=== PATIENT | male | born 1965 | race Two or more races ===

== ENCOUNTER 2018-08-30 14:39 | Inpatient (IN) | payer OTHER ==
[~2018-08-30] VITALS: Ht 177.8 cm; Wt 82.5 kg
--- NOTE | 2018-08-30 20:32 | NUR ---
PATIENT ARRIVED TO THE UNIT AROUND 1999 VIA STRETCHER. WAS ABLE TO TRANSFER INDEPENDENTLY. FAMILY ACCOMPANIED PATIENT. VS STABLE. TELE [address]. PATIENT DENIES FEELING DIZZY OR LIGHTHEADED, NO PAIN OR NAUSEA. ABD IS SOFT, BOWEL SOUNDS ARE ACTIVE. PATIENT APPEARS TO BE IN GOOD PHYSICAL HEALTH. IV SITE SL, FLUSHES WELL. WOUNDS ON BOTH ARMS, PATIENT REPORTS THEM BITE CUEVA FROM HIS SON WHO HAS BEHAVIORAL ISSUES. NO CONERNS FOR SAFETY IN THE HOME. DISCUSSED PLAN OF CARE WITH PATIENT AND WHAT TO EXPECT FOR THIS NIGHT. PATIENT HAS NOT BEEN IN THE HOSPITAL OVER NIGHT BEFORE THIS STAY. PATIENT AGREES TO CALL BEFORE GETTING OUT OF BED AND WAS ORIENTED TO THE CALL LIGHT. DRINKS OFFERED TO FAMILY MEMBERS, AWAITING ORDERS FOR PATIENT.
--- NOTE | 2018-08-30 21:30 | NUR ---
PATIENT RESTING IN BED WATCHING TV. DENIES ANY NEEDS AT THIS TIME. CALL LIGHT IN REACH. FAMILY IN ROOM.
--- NOTE | 2018-08-30 22:45 | NUR ---
IN ROOM TO ASSESS PATIENT
--- NOTE | 2018-08-31 | NUR ---
PATIENT SLEEPING SOUNDLY. RR 18. WATER CUP REMOVED FROM BEDSIDE. FAMILY IN ROOM. CALL LIGHT IN REACH.
--- NOTE | 2018-08-31 05:10 | NUR ---
MORNING VS DONE. PATIENT REPORTS FEELING "FINE" THIS MORNING. NO PAIN. NO BM. VS STABLE. IV FLUIDS PER ORDER, SITE WNL. CONSENT SIGNS AND WITNESSED BY MYSELF. ALL QUESTIONS ANSWERED. PATIENT UP TO THE BATHROOM. DENIES FEELING LIGHTHEADED OR DIZZY. URINE OUTPUT QS.
--- NOTE | 2018-08-31 05:18 | NUR ---
PATIENT SLEPT THROUGHOUT THE NIGHT. NO BM SINCE ARRIVAL. VS STABLE. TELE 5, HR 55-65 AT REST. IV FLUIDS, LR @ 125. URINE OUTPUT QS. PATIENT STABLE WITH AMBULATION, NOT LIGHTHEADED OR DIZZY. CONSENT SIGNED, WILL WORK HIM IN FOR PLANNED PROCEDURES TODAY. NPO SINCE MIDNIGHT.
--- NOTE | 2018-08-31 07:30 | NUR ---
RECIEVED BEDSIDE REPORT FROM SOL NDIAYE. PT AWAKE AND ALERT. MOTHER AT BEDSIDE. PT HAD QUESTIONS RE LABS. LAB RESULTS EXPLAINED TO PT. NPO SINCE MIDNIGHT. ANXIOUSLY WAITING FOR HIS PROCEDURE.
--- NOTE | 2018-08-31 08:39 | NUR ---
PT OFF THE FLOOR TO HAVE UPPER GI SCOPE.
--- NOTE | 2018-08-31 09:19 | NUR ---
08/31/18 0919 Fatou English 0912- PT ARRIVES TO PACU ALERT. PT REPORTS NO PAIN OR NAUSEA. RESP EVEN AND UNLABORED. OXYGEN SAT HIGH 90'S TO 100% ON 3L VIA NC. 0914- OXYGEN TURNED OFF. OXYGEN SAT HIGH 90'S ON RA. 0918- DR. MADRIGAL AT THE BEDSIDE TO TALK WITH THE PT.
--- NOTE | 2018-08-31 10:30 | NUR ---
PATIENT ASLEEP IN BED. WILL RETURN LATER.
--- NOTE | 2018-08-31 14:46 | NUR ---
PT RESTING IN BED WITH NO COMPLAINTS OF PAIN, LIGHTHEADNESS OR ANY OTHER PROBLEMS.
--- NOTE | 2018-08-31 19:10 | NUR ---
SHIFT REPORT RECEIVED. PATIENT RESTING IN BED, TALKING ON CELL PHONE. WILL RETURN.
--- NOTE | 2018-08-31 19:29 | NUR ---
CHARGE NURSE REPORT RECEIVED FROM ALAINA. PT IN BED, WATCHING TV NO NEEDS AT THIS TIME
--- NOTE | 2018-08-31 20:19 | CONS ---
[facility] [address], [place] [address] Signed DATE OF CONSULTATION: 08/30/2018 TIME: 10:30 p.m. PROBLEM: Melena. HISTORY OF PRESENT ILLNESS: This 53-year-old man lives in [place], [place] and works in the [employer] area for an [employer]. He is accompanied by his mother at this time. His is at home with one of their disabled children. For the past several days, he has noted dark maroon stools every time he has had a bowel movement. He has had no hematemesis. He has had no abdominal pain or persistent nausea or vomiting. He is generally feeling well, though he did have lightheadedness today when he was doing some chores around his home. On that basis, he presented to the emergency room where he was evaluated by Dr. Rodriguez. His evaluation included a CBC, which was notable for hematocrit of only 27.5 (hemoglobin 9.5). His platelet count is 157,000. His chem profile is normal. Coags normal with an INR of 1.0. Urinalysis normal. He has no family history of stomach or colon cancer. He has never had such findings before. He has never had an ulcer. Indeed, he is quite well overall in his health. He has never had surgery or hospitalization. ALLERGIES: He has allergy to penicillin, but takes no home medications. SOCIAL HISTORY: He is . His is at home with two children, one of them is disabled. His mother accompanies him at this time. PHYSICAL EXAMINATION: GENERAL: Pleasant man who looks to be in no distress at this time. HEENT: Mucous membranes are reasonably moist. Trachea is midline. CHEST: Clear. HEART: Regular without murmur. ABDOMEN: Soft and nondistended. He is not particularly obese. There is no focal mass, no ascites. EXTREMITIES: Show no clubbing, cyanosis, or edema. ASSESSMENT: Electronically Signed By: MAURILIO MADRIGAL MD 08/31/182018 PATIENT NAME: LIBRADO DUMONT CONSULTATION DATE OF : 67 REPORT #: [id number] PHYSICIAN: MAURILIO MADRIGAL MD PCP: MARCIE YORK MD REPORT IS CONFIDENTIAL AND NOT TO BE RELEASED WITHOUT AUTHORIZATION [facility] [address], [place] [address] Signed The patient has maroon-colored stool with associated lightheadedness and anemia with hematocrit of 27. It is highly probable he has a peptic problem, though he has not been on nonsteroidal medication. I would recommend upper endoscopy at the earliest opportunity tomorrow and if negative, preparation for consideration for colonoscopy. The risks of bleeding, infection, and perforation were reviewed with him in detail. He understands. PLAN: We will schedule for upper endoscopy tomorrow, time to be determined. We will check a CBC in the morning. If things should "cut loose" in the meantime, obviously an expedited endoscopic evaluation would be warranted. MD RAFAEL Felipe/JABARI /[id number] cc: Yolanda Brown MD Copies: YOLANDA BROWN DO ~ Electronically Signed By: MAURILIO MADRIGAL MD 08/31/182018 PATIENT NAME: LIBRADO DUMONT CONSULTATION DATE OF : 67 REPORT #: [id number] PHYSICIAN: MAURILIO MADRIGAL MD PCP: MARCIE YORK MD REPORT IS CONFIDENTIAL AND NOT TO BE RELEASED WITHOUT AUTHORIZATION
--- NOTE | 2018-08-31 20:19 | OR ---
[facility] [address], [place] [address] Signed DATE OF OPERATION: 08/31/2018 SURGEON: Maurilio Madrigal MD PREOPERATIVE DIAGNOSES: Maroon stool, decreased hematocrit to 27, recent lightheadedness. POSTOPERATIVE DIAGNOSES: 1. No source of upper gastrointestinal bleeding obvious. 2. Nodular changes of duodenal bulb. 3. Single gastric polyp. PROCEDURES: 1. Esophagogastroduodenoscopy with multiple biopsies of nodular duodenum. 2. Excision of gastric polyp. ANESTHESIA: Intravenous sedation, fentanyl 100 mcg, Versed 3 mg. INDICATION: This 53-year-old man presented to the emergency room yesterday after several days of maroon stools. He was lightheaded. He is noted to have a hematocrit of 27. He does not use any nonsteroidal medication and has no specific risk factors for gastrointestinal bleeding. He is admitted at this time to undergo upper endoscopy on the possibility of this represents an upper gastrointestinal source of bleeding. He has not undergone a bowel prep yet. He understands the risks of bleeding, infection, and perforation related to upper endoscopy and wished to proceed. FINDINGS: The esophagus was normal. The stomach was largely normal except for a gastric polyp, which was unifocal and may be adenomatous. It was excised completely. There were nodular changes of the duodenal bulb with some inflammation, but no sign of active hemorrhage in any way. The 2nd and 3rd portions of the duodenum were normal. PROCEDURE IN DETAIL: The patient was brought to the endoscopy suite and placed in lateral decubitus position after undergoing topical Hurricaine spray hypopharyngeal anesthesia. He was given intravenous sedation to the point of slurred speech and nystagmus with full Electronically Signed By: MAURILIO MADRIGAL MD 08/31/182018 PATIENT NAME: LIBRADO DUMONT OPERATIVE REPORT DATE OF : 67 REPORT #: [id number] PHYSICIAN: MAURILIO MADRIGAL MD PCP: MARCIE YORK MD REPORT IS CONFIDENTIAL AND NOT TO BE RELEASED WITHOUT AUTHORIZATION [facility] [address], [place] [address] Signed cardiopulmonary monitoring. A bite block was placed. An Olympus video upper endoscope was passed in the hypopharynx. The vocal cords appeared normal. The scope was advanced in the esophagus throughout its length, it was normal. The scope entered through the stomach without problem. Rugal folds appeared normal. Pylorus was normal. There was no sign of ulceration, bleeding, clot, or other issue. There was no gastritis. The scope was passed through the pylorus into the duodenum where inflammatory changes of a multinodular duodenal bulb was noted. Scope was passed to the 2nd and 3rd portions, which was normal. Biopsies were taken of 2nd and 3rd portions to assess for celiac disease and the scope was withdrawn and then biopsies taken of the duodenal bulbar nodularity. Neuro band imaging suggested this may represent adenomatous change, though that is not certain. The scope was withdrawn to the stomach and biopsies taken for pathology, but also an excision of an antral gastric polyp. Retroflexed view showed a normal flap valve. The scope was withdrawn Affirming normal findings of the esophagus. Careful withdrawal of scope showed no other abnormalities. The patient was taken to recovery room in good condition. CONCLUDING DIAGNOSIS: Unlikely is his source of gastrointestinal bleeding from the upper gastrointestinal tract. The nodularity of the duodenum was significant and with mild inflammation, but probably not the source of bleeding assuredly. On the basis of his hematochezia or maroon-colored stool, which has been noted, I would recommend colonoscopy. A bowel prep will be needed of course. We will review this with Dr. Brown. MD RAFAEL Felipe/MODL /[id number] cc: Yolanda Brown MD [place], [place] Copies: YOLANDA BROWN DO Electronically Signed By: MAURILIO MADRIGAL MD 08/31/182018 PATIENT NAME: LIBRADO DUMONT OPERATIVE REPORT DATE OF : 67 REPORT #: [id number] PHYSICIAN: MAURILIO MADRIGAL MD PCP: MARCIE YORK MD REPORT IS CONFIDENTIAL AND NOT TO BE RELEASED WITHOUT AUTHORIZATION [facility] [address], [place] [address] Signed ~ Electronically Signed By: MAURILIO MADRIGAL MD 08/31/182018 PATIENT NAME: LIBRADO DUMONT OPERATIVE REPORT DATE OF : 67 REPORT #: [id number] PHYSICIAN: MAURILIO MADRIGAL MD PCP: MARCIE YORK MD REPORT IS CONFIDENTIAL AND NOT TO BE RELEASED WITHOUT AUTHORIZATION
--- NOTE | 2018-08-31 20:30 | NUR ---
EVENING MEDS DONE. VS STABLE. PATIENT RESTING IN BED WATCHING TV. DENIES ANY PAIN OR LIGHTHEADEDNESS. ABD IS SOFT, BOWEL SOUNDS HYPERACTIVE. PATIENT HAVING LIQUID BM, BOWEL PREP COMPLETED ON DAYSHIFT. PATIENT DENIES ANY CONCERNS. IV FLUIDS PER ORDER, SITE WNL. PATIENT DENIES NEEDS AT THIS TIME. CALL LIGHT IN REACH. FAMILY IN ROOM.
--- NOTE | 2018-08-31 22:49 | NUR ---
PATIENT RESTING IN BED WATCHING TV. DENIES ANY NEEDS. CALL LIGHT IN REACH.
--- NOTE | 2018-09-01 01:00 | NUR ---
PATIENT'S URNAL EMPTIED. VS DONE, STABLE. PATIENT DENIED NEEDS AT THIS TIME.
--- NOTE | 2018-09-01 05:00 | NUR ---
PATIENT RESTING IN BED WATCHING TV. DENIES ANY NEEDS.
--- NOTE | 2018-09-01 06:48 | NUR ---
PATIENT SLEPT THROUGHOUT THE SHIFT. NO PAIN. NO SIGNS OF BLEEDING. NO BM THIS SHIFT. BOWEL PREP FINISHED ON DAY SHIFT YESTERDAY. IV FLUIDS PER ORDER. NO PAIN, NO NAUSEA. TELE 5, HR IN THE 60'S. PATIENT STEADY ON HIS FEET. NPO SINCE MIDNIGHT.
--- NOTE | 2018-09-01 07:32 | NUR ---
RECIEVED BEDSIDE REPORT FROM SOL NDIAYE. PT AWAKE AND ALERT IN BED. NO CONCERNS AT THIS TIME.
--- NOTE | 2018-09-01 10:13 | NUR ---
MED REC COMPLETE
--- NOTE | 2018-09-01 13:45 | NUR ---
REPORT RECEIVED FORM SOL OTT. PT RESTING IN BED AND WATCHING TV. PT DENIES PAIN AND NAUSEA AND STATES "I JUST WANT TO GET THIS DONE SO I CAN GO HOME." PT REPORTS OCCATIONAL DIZZINESS. ASSESSMENT DONE. PT AWIAING C-SCOPE THIS AFTERNOON. PT VERBALIZES UNDERSTANDING OF PLAN OF CARE AND STATES HIS QUSTIONS HAVE BEEN ANSWERED. NO ADDITIONAL REQUESTS OR COMPLAINTS AT THIS TIME. BED RAILS UP. CALL LIGHT WITHIN REACH.
--- NOTE | 2018-09-01 14:10 | NUR ---
PT TO ENDOSCOPY WITH RN AUDREY.
--- NOTE | 2018-09-01 14:27 | NUR ---
STAFF MEMBERS REQUESTED I CONTACT PT. FAMILY IS REQUESTING SP. CARE. AFTER QUESTIONING, IT WAS STATED BY FAMILY THAT THEY WOULD LIKE TO SEE FR ISAAC. HE FWAS IN THE HOUSE, CONTACTED HIM AND HE WILL GO BY AND CARE FOR THEM. WILL FOLLOW NEEDED
--- NOTE | 2018-09-01 16:45 | NUR ---
PT RETURNED FROM PACU, REPORT RECEIVED FROM SOL TRACY. VITALS TAKEN. ASSESSMENT DONE. PT DENIES PAIN AND NAUSEA. PT TALKING CONTINIOUSLY. PT UPDATED ON PLAN OF CARE AND VERBALIZES UNDERSTANDING OF PLAN OF CARE. PTS FAMILY AT BEDSIDE, QUESTIONS ASKED AND ANSWERED. IMAGING TO BEDSIDE FOR SCAN. BLOOD DRAWN BY IMAGING TECHNITIAN. PT AND FAMILY STATE ALL THEIR QUESTIONS HAVE BEEN ANSWERED. BED RAILS UP. CALL LIGHT WITHIN REACH.
--- NOTE | 2018-09-01 17:15 | NUR ---
09/01/18 1715 Mary Cifuentes 1551 PT ARRIVED IN PACU AWAKE WITH NO C/O'S. 1600 OXYGEN REMOVED. SATS 98% ON RA. ABD SOFT. 1610 DR AT BEDSIDE TALKING TO PT. 1630 PT ASKING QUESTIONS ABOUT COLONOSCOPY AND DR'S PLAN. ALL QUESTIONS ANSWERED. 1645 TO ROOM 124. REPORT GIVEN TO SOL WESTBROOK.
--- NOTE | 2018-09-01 17:33 | NUR ---
PT SALINE LOCKED FOR BLOOD LOSS STUDY. PT TO RADIOLOGY.
--- NOTE | 2018-09-01 17:40 | NUR ---
IMMAGING DEPARTMENT ARRIVED TO TAKE PT FOR SCAN. PT STATES ALL HIS QUESTIONS HAVE BEEN ANSWERED. NO REQUESTS OR COMPLAINTS AT THIS TIME.
--- NOTE | 2018-09-01 19:00 | NUR ---
PT RETURNED FROM IMAGING. REPORT GIVEN TO SOL NDIAYE. IV FLUIDS RESTARTED. LAB TO BEDSIDE FOR LAB DRAW. BED RAILS UP, CALL LIGHT WITHIN REACH. FAMILY AT BEDSIDE.
--- NOTE | 2018-09-01 19:01 | NUR ---
PT HERE FOR GI BLEED. EGD, C-SCOPE, AND DYE SCAN DONE TODAY. PT CONTINUES TO HAVE OCCATIONAL MARROON BMS. PT HAS BEEN NPO SINCE FRIDAY, ANXIOUS ABOUT EATING AND PLAN OF CARE. TELE #5 FOR BRADYCARDIA. POSSIBLE ADDITIONAL SCANS TOMORROW. PT HAS BEEN TYPE AND CROSS MATCHED FOR POSSIBLE BLOOD TRANSFUSION IF NEEDED. NO PAIN OR NAUSEA THIS SHIFT. FAMILY AT BEDSIDE. PT USES CALL LIGHT APPROPRIATLY.
--- NOTE | 2018-09-01 19:15 | NUR ---
SHIFT REPORT RECEIVED. PATIENT IN BED VISITING WITH FAMILY. ASKING FOR WATER. WILL CONTACT .
--- NOTE | 2018-09-01 19:20 | NUR ---
CHARGE NURSE REPORT RECEIVED, PT IN BED, WITH FAMILY IN ROOM. NO NEEDS AT THIS TIME.
--- NOTE | 2018-09-01 20:15 | NUR ---
SPOKE WITH DR. CENTENO. PATIENT ALLOWED CLEAR LIQUIDS.
--- NOTE | 2018-09-01 20:30 | NUR ---
PATIENT PROVIDED WITH CLEAR LIQUIDS. PATIENT IS ANXIOUS ABOUT HIS CARE. DISCUSSED PLAN OF CARE WITH PATIENT AND FAMILY. PATIENT HAS NO PAIN OR NAUSEA. NO BM THIS SHIFT. IV FLUIDS PER ORDER. PATIENT DENIES NEEDS.
--- NOTE | 2018-09-02 01:00 | NUR ---
NEW BAG OF IV FLUIDS STARTED. URNAL EMPTIED. VS DONE, STABLE. PATIENT DENIES NEEDS.
--- NOTE | 2018-09-02 04:15 | NUR ---
PATIENT CALLED FOR URNAL TO BE EMPLIED. RESTING COMFORTABLE IN BED. DENIES ANY FURTHER NEEDS.
--- NOTE | 2018-09-02 06:39 | NUR ---
PATIENT SLEPT MOST OF THE SHIFT. IS ANXIOUS TO "GET ANSWERS" TODAY. CT SCHEDULED FOR THIS MORNING WITH ORAL BARIUM. PATIENT INDEPENDENT IN THE ROOM. TELE 5, HR 60'S. VS STABLE. IV FLUIDS PER ORDER. NO STOOLS THIS SHIFT.
--- NOTE | 2018-09-02 07:45 | NUR ---
PATIENT RESTING IN BED, FAMILY IN ROOM. PATIENT REFUSED AM CARE. CALL LIGHT IN REACH. NO OTHER NEEDS AT THIS TIME.
--- NOTE | 2018-09-02 07:55 | NUR ---
MORNING ASSESSMENT DONE. PATIENT DENIES PAIN OR NAUSEA, IS HAVING CLEARS FOR BREAKFAST. NO WORD ON WHAT TIME PATIENT IS TO HAVE BARIUM CT TODAY. FAMILY IN ROOM WITH PATIENT.
--- NOTE | 2018-09-02 10:00 | NUR ---
PATIENT GIVEN IV PROTONIX. PATIENT IS DRINKING ORAL CONTRAST FOR CT SCAN. PATIENT UP TO VOID AD TISHA.
--- NOTE | 2018-09-02 10:48 | NUR ---
PATIENT BACK IN BED, THIS SUPPORT SERVICES COORDINATOR SET UP PATIENT FOR A SHOWER. PATIENT STATES HE IS WAITING FOR FAMILY TO BRING HIM CLOTHES BEFORE HE TAKES A SHOWER. CALL LIGHT IN REACH. NO OTHER NEEDS AT THIS TIME.
--- NOTE | 2018-09-02 11:26 | NUR ---
PATIENT IS SALINE LOCKED, UP TO SHOWER.
--- NOTE | 2018-09-02 12:03 | OR ---
[facility] [address], [place] [address] Signed DATE OF OPERATION: 09/01/2018 SURGEON: Maurilio Madrigal MD PREOPERATIVE DIAGNOSIS: Melena, hematocrit 22, upper endoscopy negative for lesion to account for bleeding. POSTOPERATIVE DIAGNOSES: 1. Dark stool proximal to ileocecal valve. 2. Villous lesion of ileocecal valve. PROCEDURES PERFORMED: 1. Total colonoscopy to cecum with intubation of the ileum. 2. Biopsy of villous lesion of ileocecal valve. ANESTHESIA: Intravenous sedation with fentanyl 150 mcg, Versed 7 mg. INDICATION: A 53-year-old man admitted on 08/30/[address] Brown with decreased hematocrit and dark maroon stool. Upper endoscopy performed yesterday showed no lesion to account for these findings. He underwent a bowel prep and is to undergo colonoscopy today. He understands the risks of bleeding, infection, and perforation related to colonoscopy and wished to proceed. FINDINGS: The prep was good. There was residual dark stool throughout the colon, but most dominantly in the right colon and certainly in the cecal area. Copious irrigation was undertaken. An intubation of the ileum accomplished, which showed dark blood proximal to the ileocecal valve. Of note, a villous lesion was noted of the ileocecal valve, which was multiply biopsied, but I do not think it is the source of the bleeding itself, though that is a possibility of course. DESCRIPTION OF PROCEDURE: The patient was brought to the endoscopy suite and placed in lateral decubitus position, given intravenous sedation upon slurred speech and nystagmus. Digital rectal examination was normal. An Olympus video colonoscope was passed in the rectum and manipulated throughout the colon. The prep was quite good. There was no solid stool. Upon approaching the right Electronically Signed By: MAURILIO MADRIGAL MD 09/02/18 1203 PATIENT NAME: LIBRADO DUMONT OPERATIVE REPORT DATE OF : 67 REPORT #: [id number] PHYSICIAN: MAURILIO MADRIGAL MD PCP: MARCIE YORK MD REPORT IS CONFIDENTIAL AND NOT TO BE RELEASED WITHOUT AUTHORIZATION [facility] [address], [place] [address] Signed colon, more dark gelatinous stool was noted coating the right colon. Irrigation was undertaken as needed and ultimately the scope passed to the cecum itself. Irrigation was undertaken there as dark black old stool was noted. Ultimately, the ileocecal valve was identified and a villous appearing lesion was noted there, was biopsied. Ultimately, the scope was passed into the ileum and there appeared to be a fair amount of black effluent in the proximal portion of the ileum, thus indicating high likelihood of the bleeding lesion to be in the small bowel after all. The scope was withdrawn after biopsies taking the villous lesion further and then the remaining colon examined showing no sign of large lesion of any sort. The scope was removed and the patient was taken to recovery room in good condition. CONCLUDING DIAGNOSIS: Gastrointestinal bleeding of a significant amount proximal to the ileocecal valve most likely. Villous lesion of the ileocecal valve and likely accounting for current bleeding problem. PLAN: Given local capabilities, consideration would be for tagged red cell scan. We will see what can be done in that regard. I will discuss this also with Dr. Brown. Maurilio Madrigal MD JM/MODL /[id number] cc: Yolanda Brown MD Copies: YOLANDA BROWN DO ~ Electronically Signed By: MAURILIO MADRIGAL MD 09/02/18 1203 PATIENT NAME: LIBRADO DUMONT OPERATIVE REPORT DATE OF : 67 REPORT #: [id number] PHYSICIAN: MAURILIO MADRIGAL MD PCP: MARCIE YORK MD REPORT IS CONFIDENTIAL AND NOT TO BE RELEASED WITHOUT AUTHORIZATION
--- NOTE | 2018-09-02 13:37 | NUR ---
PATIENT RESTING IN BED, ANXIOUS TO LEARN ABOUT CT SCAN FROM THIS MORNING.
--- NOTE | 2018-09-02 17:18 | NUR ---
OBTAINED A RELEASE OF INFO. FROM PT TO SEND PROGRESS NOTES AND IMAGES TO [facility] IN HOPES OF GETTING A REFERRAL. I WILL CALL IN AM TO CHECK UP ON THE STATUS.
--- NOTE | 2018-09-02 17:44 | NUR ---
PATIENT SITTING UP IN BED, SOL BLUM AND FATEMEH AT BEDSIDE. FAMILY IN ROOM. CALL LIGHT IN REACH. NO OTHER NEEDS AT THIS TIME.
--- NOTE | 2018-09-02 17:51 | NUR ---
PATIENT THROUGH 15 INFUSION TIME, NO REACTIONS NOTED. BLOOD INFUSION CONTINUED.
--- NOTE | 2018-09-02 19:20 | NUR ---
SHIFT REPORT RECEIVED. PATIENT'S FIRST UNIT OF BLOOD ALMOST FINISHED. WEIR FISHERMAN TO GET SECOND UNIT. PATIENT HAS NO SIGNS OF REACTION.
--- NOTE | 2018-09-02 19:35 | NUR ---
FIRST UNIT OF BLOOD FINISHED. VS STABLE. NO SIGNS OF REACTION.
--- NOTE | 2018-09-02 20:05 | NUR ---
SECOND UNIT OF BLOOD STARTED. THIS RN IN ROOM FOR FIRST 15MINS. VS STABLE. NO SIGN OF REACTION. UNIT SET TO INFUSE OVER 90 MINS. REVIEWED SIGNS OF REACTION WITH PATIENT, HE VERBALIZED UNDERSTANDING. NO OTHER NEEDS AT THIS TIME. CALL LIGHT IN REACH. FAMILY IN ROOM.
--- NOTE | 2018-09-02 22:00 | NUR ---
PATIENT RECEIVED SECOND UNIT OF BLOOD PER ORDER. NO REACTION, VS STABLE. LAB IN TO DRAW FOLLOW UP LABS. PATIENT DENIES ANY ITCHING, FEVER/CHILLS, PAIN, ETC. DENIES NEEDS AT THIS TIME. FAMILY IS IN ROOM. CALL LIGHT IN REACH.
--- NOTE | 2018-09-03 00:05 | NUR ---
PATIENT APPEARS TO BE SLEEPING SOUNDLY. RR 18. FAMILY IN ROOM.
--- NOTE | 2018-09-03 06:41 | NUR ---
PATIENT RECIEVED 2 UNITS BLOOD LAST NIGHT. VS STABLE AND LAB VALUES HAVE IMPROVED. PATIENT SL. URINE OUTPUT QS. NO STOOL NOTED THIS SHIFT.
--- NOTE | 2018-09-03 07:20 | NUR ---
REPORT RECEIVED FROM SOL NDIAYE. PT WATCHING TV AND ANTICIPATING DISCHARGE. PT STATES HE HAS NO REQUESTS AT THIS TIME. PLAN OF CARE REVIEWED WITH PT. PT VERBALIZES UNDERSTANDING. BED RAILS UP. CALL LIGHT WITHIN REACH.
--- NOTE | 2018-09-03 09:43 | NUR ---
MORNING ASSESSMENT AND MEDICATION DUE. PT UP IN ROOM, VISITING WITH AND WATCHING TV. PT DENIES PAIN AND NASUEA. PT TOLERATING FULL LIQUID DIET, VANILLA ENSURE MILKSHAKE PROVIDED PER PT REQUEST. VOIDS 350ML WITHOUT ISSUE AND CONTINUES WALKING AROUND ROOM. PIV DC'D PER PROTOCOL IT HAS BEEN IN FOR 4 DAYS. PT DENIES ADDITIONAL REQUESTS OR COMPLAINTS AT THIS TIME. ANTICIPATING DISCHARGE "SOON." CALL LIGHT WITHIN REACH.
--- NOTE | 2018-09-03 10:57 | NUR ---
THIS RN TO ROOM TO CHECK ON PT. PT WATCHING TV AND VISITING WITH . NO REQUESTS OR COMPLAINTS AT THIS TIME. CALL LIGHT WITHIN REACH.
--- NOTE | 2018-09-03 12:34 | NUR ---
THIS RN TO ROOM TO CHECK ON PT. PT CONTINUES TO BE "ANXIOUS TO GO HOME." ASSESSMENT DONE. PT DENIES PAIN AND NAUSEA. PT DENIES BM'S TODAY. PT TOLERATING FULL LIQUID DIET AND "WANT MORE TO EAT." PT UPDATED ON PLAN OF CARE. NO ADDITIONAL REQUESTS OR COMPLAINTS. BED CRAILS UP. CALL LIGHT WIHTIN REACH. FAMILY AT BEDSIDE.
--- NOTE | 2018-09-03 13:06 | NUR ---
THIS RN TO ROOM WITH MD FOR ROUNDS. PT REPORTS A RECENT BM. 500ML OF FOAMY, LIQUID, MARROON STOOL NOTED BY THIS RN AND MD. PT ADVISED THAT FURTHER TESTS WILL BE NEEDED. PT VERBALIZES UNDERSTANDING AND ANXIETY. PT PACING IN [place]. FAMILY UPDATED AND VERBALIZES UNDERSTANDING OF PLAN OF CARE.
--- NOTE | 2018-09-03 13:56 | NUR ---
PIV STARTED PER PROTOCOL. BRISK BLOOD RETURN NOTED WITH IV START. LINE SALINE LOCKED AT THIS TIME. PT CONTINUES TO DENY PAIN AND NAUSEA. NO ADDITIONAL BMS AT THIS TIME. "THAT WAS MY FIRST BOWEL MOVEMENT SINCE YESTERDAY, I'M GLAD I DR. CENTENO GO HERE JUST 10 MINUTES AFTER IT HAPPENED." BED RAILS UP. CALL LIGHT WITHIN REACH.
--- NOTE | 2018-09-03 14:43 | NUR ---
PT FOUND PACING IN [place]. THIS RN WALKS WITH PT X3 LAPS IN HALLWAY. PT STATES HE IS WORRIED ABOUT HIS TRANSFER AND HIS SON WITH CP. THERAPUTIC COMMUNICATION DONE. PT UPDATED ON PLAN OF CARE. PT BACK TO ROOM AND STATES HE "WILL WAIT PATIENTLY." NO ADDITIONAL REQUESTS, CONCERNS OR COMPLAINTS. CALL LIGHT WITHIN REACH. FAMILY AT BEDSIDE.
--- NOTE | 2018-09-03 15:45 | NUR ---
THIS RN TO ROOM TO CHECK ON PT. PT VISITING WITH AND FAMILY. THIS RN OFFERED TO ANSWER QUESTIONS, FAMILY REQUESTS QUITE/ALONE TIME FOR NOW. WILL CHECK BACK. CALL LIGHT WITHIN REACH.
--- NOTE | 2018-09-03 16:52 | NUR ---
AFTERNOON ASSESSMENT DUE. THIS RN TO BEDSIDE. PT VISITING WITH FAMILY. FAMILY UPDATED WITH TRANSLATER. FAMILY VERBALIZES UNDERSTANDING AND STATES ALL QUESTIONS HAVE BEEN ANSWERED. PT UP TO RESTROOM. 100ML LIQUID MARROON BM NOTED WITH 1-2 CLOTS. ASSESSMENT DONE. RUQ PAIN AT 110 NOTED BY PT. PT DENIES INCREASES OR CHANGES IN PAIN WITH PALPITATION. PT STATES "IT'S LIKE GAS PAIN." PT DENIES DIZZINESS OR LIGHT HEADEDNESS. MD NOTIFIED, DIET CHANGED TO CLEARS, WILL CONTINUE TO MONITOR. PT WATCHING TV. NO ADDITIONAL REQUESTS OR COMPALINTS. BED RAILS UP. CALL LIGHT WITHIN REACH.
--- NOTE | 2018-09-03 18:09 | NUR ---
PT HERE FOR GI BLEED. 600ML OF LIQUID MAROON STOOL NOTED TODAY WITH OCCATIONAL CLOTS. NEW PIV STARTED IN LFA, SALINE LOCKED AT THIS TIME. PT ANTICIPATING TRANSFER TO HIGHER LEVEL CARE ONCE A BED BECOMES AVALIABLE. FAMILY UPDATED USING EXAMINING OFFICER. PT CONTINUES TO DENY NAUSEA THIS SHIFT. NEW 08/06 PAIN IN RUQ, CONTINUE TO MONITOR. DIET CHANGED TO CLEARS. PT INDEPENDANT IN ROOM AND USES CALL LIGHT APPROPRIATLY.
--- NOTE | 2018-09-03 19:20 | NUR ---
IN ROOM FOR REPORT, PT IS AWAKE IN BED AND HIS MOTHER IS IN THE ROOM. HE DENIES NEEDS AT THIS TIME. CALL LIGHT IS CLOSE.
--- NOTE | 2018-09-03 20:47 | NUR ---
ASSESSED PT AND ADMINISTERED MEDICATIONS. UPDATED PT ABOUT POC AND NEW ORDERS FOR TELE/IV FLUIDS. PT DENIES DIZZINES AND PAIN AT THIS TIME. HIS MOTHER IS IN THE ROOM AND WILL STAY THE NIGHT. VS STABLE AND PT DENIES FURTHER NEEDS. CALL LIGHT IS CLOSE.
--- NOTE | 2018-09-03 22:05 | NUR ---
PT IS AWAKE IN BED AT THIS TIME, HE DENIES NEEDS AT THIS TIME. CALL LIGHT IS CLOSE.
--- NOTE | 2018-09-04 00:11 | NUR ---
PT IS RESTING WITH EYES CLOSED, RR IS EVEN AND NONLABORED. CALL LIGHT IS CLOSE.
--- NOTE | 2018-09-04 03:45 | NUR ---
RECEIVED REPORT FROM SOL LEIGH. ROUNDED ON pt. RESTING WITH EYES CLOSED, RESPIRATIONS REGULAR, RATE = 14. CALL LIGHT WITHIN REACH.
--- NOTE | 2018-09-04 06:14 | NUR ---
VITALS AND I&OS DONE AND CHARTED. BEDSIDE TABLE AND CALL LIGHT IN REACH. PT NEEDS NOTHING AT THIS TIME.
--- NOTE | 2018-09-04 06:19 | NUR ---
ASSESSMENT DONE. pt DENIES PAIN AND NAUSEA. TELE 4, SINUS BUBBA. NO REQUESTS AT THIS TIME. CHURCH ORGANIST IN ROOM.
--- NOTE | 2018-09-04 06:19 | NUR ---
pt RESTED MOST OF SHIFT. INDEPENDENT IN ROOM. TELE 4, SINUS BUBBA. IVF INFUSING. TOLERATING CLEAR LIQUID DIET. pt ANTICIPATING TRANSFER TO HIGHER LEVEL OF CARE WHEN BED BECOMES AVAILABLE. USES CALL LIGHT APPROPRIATELY.
--- NOTE | 2018-09-04 07:20 | NUR ---
Bedside report received from SOL Gomez. Pt resting supine in bed, asks "when will i get to be transfered?" Pt asssured that he will be updated as soon as this is known. Pt denies nausea and states he is passing gas but no stool since yesterday. Call light and h2O in reach. No further needs or concerns voiced.
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
--- NOTE | 2018-09-04 11:24 | NUR ---
pt resting in fowlers position in bed laughing and conversing with several family members in room. Per MD request pt updated on fact that MD is working on placement but that [facility] currently has no beds available. Pt verbalized understanding and denies further needs/concerns at this time.
--- NOTE | 2018-09-04 12:10 | NUR ---
In to assess patient. Pt resting in bed with HOB elevated. Call light and fresh h2o and apple juice provided. Assesment completed. Pt again asks about status of transfer and was informed that there are not any beds available at this time at [facility] and that he will be notified if/when this changes. Pt states he continues to pass gas and denies nausea or having any bm's. 1100mls emptied from urinal.
--- NOTE | 2018-09-04 13:47 | NUR ---
RECIEVED CALL FROM [facility] REQUESTING FACE SHEET BE FAXED TO [phone]. STATES SHE WILL BE CALLING BACK SHORTLY WITH BED.
--- NOTE | 2018-09-04 14:50 | NUR ---
Report called to SOL Carrillo at [facility], all questions answered.
--- NOTE | 2018-09-04 15:09 | NUR ---
CALLED [facility] FOR TRANSPORT TO [facility]. JAVIER GUZMAN SAID THEY CAN GET A TEAM TOGETHER AND THEY ARE ON THEIR WAY. WILL BE HERE SOON, THEY DID VERIFY THAT FAMILY MEMBER CAN RIDE IN TRANSPORT WITH HIM.
== END 2018-09-04 15:49 | disposition short-term general hospital (02) | DRG 378 ==
LOC: ED 14:39 → MS 19:33
PROVIDERS: Surgery; ADMIT Student in an Organized Health Care Education/Training Program
PROC: 0DB68ZX Excision of Stomach, Via Natural or Artificial Opening Endoscopic, Diagnostic (ICD-10-PCS; 2018-08-31)
PROC: 0DB98ZX Excision of Duodenum, Via Natural or Artificial Opening Endoscopic, Diagnostic (ICD-10-PCS; principal; 2018-08-31 10:00)
PROC: 0DBC8ZX Excision of Ileocecal Valve, Via Natural or Artificial Opening Endoscopic, Diagnostic (ICD-10-PCS; 2018-09-01)
PROC: 30233N1 Transfusion of Nonautologous Red Blood Cells into Peripheral Vein, Percutaneous Approach (ICD-10-PCS; 2018-09-02)
DX: K92.2 Gastrointestinal hemorrhage, unspecified (principal); D62 Acute posthemorrhagic anemia; D12.0 Benign neoplasm of cecum; K31.7 Polyp of stomach and duodenum; K31.89 Other diseases of stomach and duodenum; R59.0 Localized enlarged lymph nodes; Z88.0 Allergy status to penicillin
CPT/HCPCS: 36415; 36430; 74177; 78278; 80048; 80053; 81001; 83735; 85014; 85018; 85025; 85610; 85730; 86850; 86900; 86901; 86920; 88305; 96361; 96374; 96376; 99153; 99285-25; A9560; C9113; G0378; G0500; J2250; J3010; J7120; P9016; Q9967

== ENCOUNTER 2021-07-10 10:31 | Emergency (ER) | payer OTHER ==
[~2021-07-10] VITALS: Ht 177.8 cm; Wt 93.2 kg
[2021-07-10] MEDS ORDERED: PAIN RELIEF650 MG PO (10:42)
== END 2021-07-10 12:36 | disposition home or self-care (01) ==
LOC: ED 10:31
DX: S43.421A Sprain of right rotator cuff capsule, initial encounter (principal); X50.0XXA Overexertion from strenuous movement or load, initial encounter; Z88.0 Allergy status to penicillin
CPT/HCPCS: 73030; 99283-25

== ENCOUNTER 2022-09-11 19:56 | Emergency (ER) | payer OTHER ==
[~2022-09-11] VITALS: Ht 175.3 cm; Wt 89.8 kg
[~2022-09-11 19:56] MED LIST: PAIN RELIEF650 MG PO
[2022-09-11] MEDS ORDERED: HYDROCHLOROTHIA25 MG PO (22:21)
--- NOTE | 2022-09-12 07:29 | EKG ---
[facility] [address] [place] [address] Signed Sinus rhythm with frequent premature ventricular complexes Otherwise normal ECG No previous ECGs available Confirmed by ROMAINE FALLON MD ([id number]) on 09/12/2022 7:29:23 AM Electronically Signed By: ROMAINE FALLON MD 09/12/22 0729 PATIENT NAME: LIBRADO DUMONT Electrocardiogram DATE OF : 67 PHYSICIAN: ROMAINE FALLON MD REPORT #: [id number] REPORT IS CONFIDENTIAL AND NOT TO BE RELEASED WITHOUT AUTHORIZATION
== END 2022-09-11 22:28 | disposition home or self-care (01) ==
LOC: ED 19:56
DX: I10 Essential (primary) hypertension (principal); R73.03 Prediabetes; Z88.0 Allergy status to penicillin
CPT/HCPCS: 36415; 80053; 81001; 83036; 84484; 85025; 93005; 93010; 99283-25